=== PATIENT | male | born 2005 | race Caucasian/White ===

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

== ENCOUNTER 2023-06-19 22:47 | Emergency (ER) | payer OTHER, SELFPAY ==
--- NOTE | 2023-06-19 22:53 | ECG_ITS ---
Measurements Intervals [place] Rate: 61 P: -29 MO: 157 QRS: 48 QRSD: 100 T: 44 QT: 401 QTc: 405 Interpretive Statements SINUS RHYTHM INCOMPLETE RIGHT BUNDLE BRANCH BLOCK [90+ ms QRS DURATION, TERMINAL R IN V1/V2, 40+ ms S IN I/aVL/V4/V5/V6] BORDERLINE ECG NO PREVIOUS ECG AVAILABLE FOR COMPARISON Electronically Signed On 06-20-2023 10:20:02 CDT by Matias Moise M.D.
--- NOTE | 2023-06-19 22:55 | ED.PSYCH ---
HPI - Psych General Chief Complaint: Psychiatric Symptoms Stated Complaint: suicidal Time Seen by Provider: 06/19/23 22:53 Source: patient Mode of arrival: EMS Limitations: no limitations History of Present Illness HPI Narrative: patient is a 17-year-old male who had suicidal ideation and still has suicidal ideation at this time. Patient made an attempt this evening using a steak knife to his neck causing a laceration as well as his left wrist causing a laceration. Patient used fentanyl by snorting this evening as well. No alcohol or other drugs. Patient just got out of senior care 3 days ago and he said this is the cause of his suicidal ideation. Patient feels that he is not treated appropriately after getting out of senior care by others. No homicide ideation. MD complaint: suicidal ideation and feels depressed Onset (ago): minute(s) (30) Duration: constant History of same: Yes Relieving factors: none Exacerbating factors: drug use Context: recent drug abuse Associated psychiatric symptoms: suicidal ideation Associated symptoms: nausea Treatments prior to arrival: none If self harm: admits thoughts of self harm and self-inflicted trauma Related Data Home Medications Medication Instructions Recorded Confirmed quetiapine 300 mg tablet 300 mg PO DAILY 06/19/23 06/19/23 sertraline 50 mg tablet 50 mg PO DAILY 06/19/23 06/19/23 Allergies Allergy/AdvReac Type Severity Reaction Status Date / Time Penicillins Allergy Unknown Verified 06/19/23 23:32 Review of Systems Review of Systems: All systems reviewed & are unremarkable except as noted in HPI and below Constitutional: Constitutional: Reports no additional constitutional complaints Eyes: Eyes: Reports no additional eye complaints ENT: Reports system reviewed and no additional complaints, except as documented Cardiovascular: Cardiovascular: Reports no additional cardiovascular complaints Respiratory: Respiratory: Reports no additional respiratory complaints Gastrointestinal: Gastrointestinal: Reports no additional gastrointestinal complaints Genitourinary: Genitourinary: Reports no additional male genitourinary complaints Musculoskeletal: Musculoskeletal: Reports no additional musculoskeletal complaints Integumentary/Breasts: Skin/Breast: Reports system reviewed and no additional complaints, except as docu Neurologic: Reports system reviewed and no additional complaints, except as documented Psychiatric: Psychiatric: Reports no additional psychiatric complaints Endocrine: Endocrine: Reports no additional endocrine complaints Hematologic/Lymphatic: Hematologic/Lymphatic: Reports no additional hematologic/lymphatic complaints Allergic/Immunologic: Allergic/Immunologic: Reports no additional allergic/immunologic complaints Exam Const: General: healthy appearing Nutritional Appearance: well nourished HENMT: Head: normal to inspection Ears: external ears normal Eyes: Conjunctivae: conjunctivae normal Pupils: Equal, round and reactive pupils present Neck: Neck: normal visual inspection Chest: Chest palpation & inspection: normal inspection of the chest Resp: Effort & Inspection: normal respiratory effort Auscultation: clear to auscultation bilaterally Cardio: Rate: regular rate Rhythm: regular rhythm GI: Inspection: non-distended GI Palp: Yes Soft to palpation and No Tenderness to palpation present (GI) Auscultation: normal bowel sounds : General: Yes bladder normal to palpation Male General Exam: Yes normal external exam Back/Spine/Pelvis: Back: no CVA tenderness Skin: General skin exam: normal color Rashes: no rashes Wounds: wounds noted Other: Patient has a right neck 3 cm linear laceration to the soft tissue; he also has a left wrist 2 cm laceration linear to the soft tissue Neuro: General: patient oriented x3 Cranial nerves: Yes Nystagmus not present Extrem: General: normal to inspection Course Course Emergency Course: p
[2023-06-19 23:13] VITALS: BP 118/65; PULSE 88; RESP 18; TEMP 36.8; O2SAT 100
[2023-06-19 23:31] LABS: Basophils Absolute Auto 0.03 K/mm3 (0.00-0.10); Basophils Percent Auto 0.5 % (0.0-1.0); Eosinophils Absolute Auto 0.17 K/mm3 (0.02-0.50); Eosinophils Percent Auto 2.8 % (1.0-6.0); Hematocrit 38.8 % (40.0-54.0); Hemoglobin 13.6 g/dL (14.0-18.0); Immature Granulocyte Absolute 0.01 K/mm3 (0.00-0.00); Immature Granulocyte Percent A 0.2 % (0.0-0.0); Lymphocytes Absolute Auto 2.23 K/mm3 (1.10-4.50); Lymphocytes Percent Auto 36.9 % (18.0-42.0); Mean Corpuscular HGB Conc 35.1 g/dL (32.0-36.0); Mean Corpuscular Hemoglobin 30.6 pg (27.0-31.0); Mean Corpuscular Volume 87.2 fL (78.0-102.0); Mean Platelet Volume 9.2 fl (8.7-11.0); Monocytes Percent Auto 6.6 % (2.0-11.0); Neutrophils Absolute Auto 3.2 K/mm3 (1.7-7.2); Platelet Count Result 231 K/mm3 (150-420); Red Blood Count 4.45 M/mm3 (4.70-6.10); Red Cell Distribution Width 11.7 % (11.6-14.4); White Blood Count 6.1 K/mm3 (4.8-10.8)
[2023-06-20 00:21] VITALS: BP 122/71; PULSE 78; RESP 18; O2SAT 98
[2023-06-20 00:24] LABS: Alanine Aminotransferase 35 U/L (16-63); Albumin Level 4.3 g/dL (3.4-5.0); Alkaline Phosphatase 95 U/L (65-260); Anion Gap 8 mmol/L (8-16); Aspartate Amino Transferase 23 U/L (15-37); Bilirubin,Total 0.5 mg/dL (0.00-1.00); Blood Urea Nitrogen 19 mg/dL (7-18); Calcium 9.6 mg/dL (8.5-10.1); Carbon Dioxide 32 mmol/L (21-32); Chloride 100 mmol/L (98-108); Glucose 96 mg/dL (70-99); Osmolality Calculated 292 mOsm/kg (285-295); Potassium 3.8 mmol/L (3.5-5.1); Salicylate 1.2 mg/dL (2.8-20.0); Sodium 140 mmol/L (136-145); Thyroid Stimulating Hormone 0.28 uIU/mL (0.52-4.13); Total Protein 7.9 g/dL (6.4-8.2)
[2023-06-20 00:26] LABS: Acetaminophen < 2 ug/mL (10-30); Ethanol < 3 mg/dL (0-6)
[2023-06-20 00:31] LABS: Estimated CRCL calculation 116 ml/min; Estimated Glomerular Filt Rate > 60
--- NOTE | 2023-06-20 00:36 | PC.NURSE ---
Pt sleeping c sitter at bedside per protocol. Call placed to [facility] for psychiatric eval.
[2023-06-20] MEDS: ONDANSETRON HCL ODT 4 MG TABLET PO ×2 (01:07→12:30)
[2023-06-20 01:09] LABS: Free T4 Free Thyroxine 1.06 ng/dL (0.76-1.46)
[2023-06-20 01:25] LABS: Appearance Urine Clear (Clear); Bilirubin Urine Negative (Negative); Blood Urine Negative (Negative); Color Urine Yellow (Yellow); Glucose Urine UA Negative (Negative); Ketones Urine Negative (Negative); Leukocyte Esterase Ur Negative LEU/UL (Negative); Nitrate Urine Negative (Negative); Protein Urine Negative (Negative); Specific Grav Ur 1.025 (1.010-1.020); Urobilinogen Urine 0.2 mg/dL (0.2-1.0)
[2023-06-20 01:32] LABS: Free T3 3.78 pg/mL (2.91-4.70)
[2023-06-20 01:33] LABS: Add Urine Microscopic? NO
[2023-06-20 01:38] LABS: Amphetamine Screen Urine Positive (Negative); Barbiturate Screen Urine Negative (Negative); Benzodiazepines Screen Urine Negative (Negative); Cannabinoid Screen Urine Positive (Negative); Cocaine Screen Urine Negative (Negative); Methadone Screen Urine Negative (Negative); Opiate Screen Urine Negative (Negative); Phencyclidine Screen Urine Negative (Negative)
[2023-06-20 01:58] LABS: Influenza A QL RT-PCR Negative (Negative); Influenza B QL RT-PCR Negative (Negative); RSV RNA, RT-PCR Negative (Negative); SARS-CoV-2 RNA PCR Negative (Negative)
--- NOTE | 2023-06-20 03:44 | PC.NURSE ---
0200-CALL FROM BORIS WITH [facility], ETA 30 MINS [id number] STATES WILL BE EN ROUTE. PRIMARY RN AND PHYSICIAN MADE AWARE.
--- NOTE | 2023-06-20 03:45 | PC.NURSE ---
Pt sleeping, continuing to monitor c sitter at bedside, Drake from [facility] preparing paperwork before talking c pt.
--- NOTE | 2023-06-20 05:45 | PC.NURSE ---
Pt nan, Drake, counselor karrie [facility] evbenajmin complete, decision to transfer to [facility] made. Pt agreeable to transfer for care. Pt back to resting quietly, sitter at bedside.
--- NOTE | 2023-06-20 06:27 | PC.NURSE ---
Pt resting, warm blanket given, no c/o at this time. Continuing to monitor, Drake attempting to find placement for inpt psychiatric treatment.
[2023-06-20 07:10] VITALS: BP 123/88; PULSE 72; RESP 14; TEMP 36.4; O2SAT 98
--- NOTE | 2023-06-20 08:13 | PC.NURSE ---
PT IS RESTING ON STRETCHER WITH SITTER AT BEDSIDE. BREAKFAST TRAY ORDERED. NAD NOTED. PT IS CALM AND COOPERATIVE. PT IS AWAITING PLACEMENT PER [facility]. WILL CONTINUE TO MONITOR.
--- NOTE | 2023-06-20 09:41 | PC.NURSE ---
NO CHANGE IN PT STATUS. PT HAS NOT EATEN HIS FOOD, HOWEVER DID DRINK HIS JUICE. PT RETURNED TO SLEEP WITH SITTER AT BEDSIDE. WILL CONTINUE TO MONITOR.
[2023-06-20 11:05] VITALS: BP 109/64; PULSE 65; RESP 16; TEMP 36.8; O2SAT 98
--- NOTE | 2023-06-20 11:39 | PC.NURSE ---
PT UP TO RR WITHOUT INCIDENT. PT TO SHOWER WITH SITTER AT SIDE. LUNCH TRAY ORDERED. PT DENIES ANY NEEDS OR COMPLAINTS. [facility] HE IS AWARE OF PLAN OF CARE. HARINDER [facility] NP ACCEPTED PT FOR TRANSFER. REPORT TO JAMES DE LA GARZA.
--- NOTE | 2023-06-20 12:06 | PC.NURSE ---
PT HAS RETURNED FROM SHOWERING, HAS NOTIFIED MOTHER OF PLAN OF CARE. SITTER AT BEDSIDE. LUNCH TRAY PROVIDED. PT IS AWAITING TRANSPORT FOR TRANSFER AT THIS TIME. WILL CONTINUE TO MONITOR. PT IS CALM AND COOPERATIVE.
--- NOTE | 2023-06-20 12:24 | PC.NURSE ---
Pt is actively vomiting in nearby bathroom
--- NOTE | 2023-06-20 12:39 | PC.NURSE ---
PT HAS HAD 2 EMESIS EPISODES, NAUSEA MEDICATIONS WERE GIVEN ORDERED WITHOUT DIFFICULTY. SUBOXONE ORDERED PER ERP. AWAITING PHARMACY TO FILL ORDER. PT REPORTS HE HAS BEEN TAKING SUBOXONE 8MG X1 YEAR, STATES HE RECENTLY GOT OUT OF REHAB AND WAS NOT GIVEN AN RX TO HAVE IT FILLED.
[2023-06-20] MEDS: BUPRENORPHINE/NALOXONE (*CRX) 4 MG/1 MG SL FILM 2 EACH SUBLINGUAL (12:47)
--- NOTE | 2023-06-20 12:56 | PC.NURSE ---
PT TOOK 4MG SUBOXONE, STATES HE USED FENTANYL IN THE PAST COUPLE DAYS AND DID NOT WANT TO TAKE 8MG. THE OTHER 4MG WAS RETURNED TO PHARMACY. ROSEANNE NOTIFIED OF PT DEPARTURE.
[2023-06-20 12:57] VITALS: BP 138/78; PULSE 88; RESP 18; O2SAT 99
== END 2023-06-20 12:58 ==
PROVIDERS: Emergency Medicine; Emergency Provider Emergency Medicine
DX: F32.A Depression, unspecified (principal); R45.851 Suicidal ideations; S11.91XA Laceration without foreign body of unspecified part of neck, initial encounter; S61.512A Laceration without foreign body of left wrist, initial encounter; Z20.822 Contact with and (suspected) exposure to COVID-19; X78.1XXA Intentional self-harm by knife, initial encounter
CPT/HCPCS: 36415; 80053; 80307; 81003; 84439; 84443; 84481; 85025; 87637; 93005; 99285; A9270